=== PATIENT | female | born 1935 | race Caucasian/White ===

== ENCOUNTER → 2018-02-24 20:47 | Outpatient (CLI) | payer MEDICARE ==
[2013-07-25 09:47] VITALS: BMI 23.9
[~2018-02-24 20:47] MED LIST: ASPIRIN81 MG PO; CO Q-1030 MG; FISH OIL 1,0001 CA1 PO; LIVALO2 MG PO; MULTI-DAY VITAM1 TAB PO; TUMS500 MG; ZEBETA5 MG PO
== END | disposition home or self-care (01) ==
LOC: D.MAMMO 01-01 13:00
DX: Z12.31 Encounter for screening mammogram for malignant neoplasm of breast (principal)

== ENCOUNTER → 2020-12-06 14:19 | Outpatient (CLI) | payer MEDICARE, OTHER ==
[2013-07-25 09:47] VITALS: BMI 23.9
== END | disposition home or self-care (01) ==
LOC: D.MRI 14:19
PROVIDERS: ATTEND Family Medicine
DX: M25.551 Pain in right hip (principal)

== ENCOUNTER → 2020-12-27 13:08 | Day surgery (SDC) | payer MEDICARE, OTHER ==
[2013-07-25 09:47] VITALS: BMI 23.9
== END | disposition home or self-care (01) ==
LOC: D.RAD 13:08
PROVIDERS: ATTEND Nurse Practitioner Family
DX: M16.11 Unilateral primary osteoarthritis, right hip (principal)